=== PATIENT | male | born 1995 | race Caucasian/White ===

== ENCOUNTER 2017-05-27 02:45 | Emergency (ER) | payer OTHER, SELFPAY ==
[2017-05-27] MEDS ORDERED: Lidocaine 1% w/Epinephrine 1:100K 20 ML VIAL ONE (03:02)
[2017-05-27] MEDS ORDERED: Adacel (T-DAP) 0.5 ML VIAL ONE (03:12)
[2017-05-27] MEDS ORDERED: Bacitracin Zinc 1 Packet ONE (04:49)
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
== END 2017-05-27 05:51 | disposition home or self-care (01) ==
LOC: ERS 02:45
DX: S01.412A Laceration without foreign body of left cheek and temporomandibular area, initial encounter (principal); S01.81XA Laceration without foreign body of other part of head, initial encounter; Y04.2XXA Assault by strike against or bumped into by another person, initial encounter
CPT/HCPCS: 12014; 70450; 90471; 90715; J2001